=== PATIENT | male | born 1945 | race Caucasian/White ===

== ENCOUNTER 2016-09-15 15:35 | Observation (INO) | payer MEDICARE, OTHER ==
[~2016-09-15 15:35] MED LIST: Furosemide 40 MG/4 ML VIAL IVPUSH PRN
[2016-09-15] MEDS ORDERED: Albuterol/Ipratropium 3.0-0.5 MG/3 ML Neb Soln NEB PRN (15:42)
[2016-09-15] MEDS ORDERED: Acetaminophen 325 MG Tab PO PRN (15:42)
[2016-09-15 16:18] LABS: CHLORIDE,CL 98 mmol/L (98-107); SODIUM,NA 138 mmol/L (136-145)
[2016-09-15] MEDS ORDERED: Albuterol 0.083% 2.5 MG/3 ML Neb Soln INH PRN (16:39)
[2016-09-15] MEDS ORDERED: Nitroglycerin 0.4 MG Tab.SL SL PRN (16:39)
[2016-09-15] MEDS: Sodium Chloride 0.9% 1,000 ML IV SCH (16:47)
[2016-09-15] MEDS: Sodium Chloride 0.9% 10 ML Syringe FLUSH PRN (16:47)
--- NOTE | 2016-09-15 16:59 | PCM.HP ---
H&P History of Present Illness - General Date of Service: 09/16/16 Admit Problem/Dx: Admission Diagnosis/Problem Admission Diagnosis/Problem Anemia Source of Information: Patient, Family History Limitations: Reports: No Limitations - History of Present Illness Initial Comments - Free Text/Narative: Patient comes into the clinic for physical exam and lab work shows hgb of 7.8. Positive occult stool noted, brown stool on exam. Patient has had history of GI bleed, denies any blood in the stool or heartburn. Last alcoholic drink December 2015. Patient does have shortness of breath at times, denies any chest pain. Has had some low blood pressures SBP 100 to 110. Improves with: Reports: Rest Worsens with: Reports: Movement Associated Symptoms: Reports: Shortness of Breath - Related Data Allergies/Adverse Reactions: Allergies Allergy/AdvReac Type Severity Reaction Status Date / Time linezolid [From Zyvox] Allergy Hallucinati Verified 09/15/16 15:51 ons methylprednisolone Allergy Hallucinati Verified 09/15/16 15:51 [From Solu-Medrol] ons Home Medications: Home Meds Cyanocobalamin (Vitamin B12) [Vitamin B12] 1,000 mcg IM Q30D 09/16/13 [History] atorvaSTATin [Lipitor] 20 mg PO BEDTIME 09/16/13 [History] Sertraline [Zoloft] 50 mg PO DAILY #30 tablet 12/18/13 [Rx] Fluticasone/Salmeterol [Advair 250-50] 1 puff INH BID 02/02/15 [History] Allopurinol [Zyloprim] 300 mg PO DAILY 05/20/15 [History] Digoxin [Digox] 125 mcg PO DAILY@1600 05/20/15 [History] Furosemide [Lasix] 40 mg PO DAILY 05/20/15 [History] Famotidine [Pepcid] 20 mg PO BID #180 06/15/15 [Rx] Nitroglycerin [Nitrostat] 0.4 mg SL ASDIRECTED PRN 01/03/16 [History] Tiotropium [Spiriva HandiHaler] 18 mcg INH DAILY 01/03/16 [History] Metoprolol Tartrate 12.5 mg PO BEDTIME 02/07/16 [History] Aspirin [Halfprin] 81 mg PO DAILY 02/14/16 [History] Levothyroxine Sodium [Synthroid] 75 mcg PO DAILY 02/14/16 [History] Pantoprazole Sodium [Protonix] 40 mg PO DAILY 02/14/16 [History] Clopidogrel [Plavix] 75 mg PO DAILY #30 tablet 02/24/16 [Rx] Albuterol Sulfate 2.5 mg IH Q4HR PRN 09/15/16 [History] Albuterol Sulfate [Proair Hfa] 1 - 2 puff INH Q4HR PRN 09/15/16 [History] Magnesium Oxide 400 mg PO DAILY 09/15/16 [History] Prednisone [IJD: Prednisone] 10 mg PO DAILY 09/15/16 [History] Sennosides/Docusate Sodium [Senna S Tablet] 1 each PO BID PRN 09/15/16 [History] Past Medical History HEENT History: Reports: Impaired Vision Cardiovascular History: Reports: CAD, Heart Failure, High Cholesterol, Hypertension, [place], Stents Respiratory History: Reports: COPD Gastrointestinal History: Reports: GI Bleed Musculoskeletal History: Reports: Back Pain, Chronic, Fracture, Osteoarthritis Neurological History: Reports: Neuropathy, Peripheral Psychiatric History: Reports: Addiction, Anxiety Endocrine/Metabolic History: Reports: Hypothyroidism Hematologic History: Reports: Anemia, B12 Deficiency, Blood Transfusion(s) - Infectious Disease History Infectious Disease History: Reports: Measles - Past Surgical History HEENT Surgical History: Reports: Oral Surgery Cardiovascular Surgical History: Reports: Carotid Stents Musculoskeletal Surgical History: Reports: Hip Replacement, ORIF Social & Family History - Tobacco Use Smoking Status *Q: Current Some Day Smoker Years of Tobacco use: 57 Packs/Tins Daily: 0.2 Used Tobacco, but Quit: No Month Tobacco Last Used: 6 month Second Hand Smoke Exposure: No - Caffeine Use Caffeine Use: Reports: Coffee - Alcohol Use Alcohol Use History: Yes Days Per Week of Alcohol Use: 3 Number of Drinks Per Day: 3 Total Drinks Per Week: 9 Date of Last Drink: 12/17/15 - Recreational Drug Use Recreational Drug Use: No Recreational Drug Last Use: 3 coffees per day in a day, occasional tea H&P Review of Systems - Review of Systems: Review Of Systems: See Below General: Reports: Weakness HEENT: Reports: No Symptoms Pulmonary: Reports: Shortness of Breath Cardiovascular: Reports: No Symptoms Gastrointestinal: Reports: No Symptoms Genitourinary: Reports: No Symptoms Musculoskeletal: Reports: Joint Pain Psychiatric: Reports: No Symptoms Neurological: Reports: No Symptoms Hematologic/Lymphatic: Reports: Anemia, Easy Bruising Immunologic: Reports: No Symptoms Exam - Exam Exam: See Below - Vital Signs Weight: 216 lb - Exam General: Alert, Oriented, Cooperative HEENT: Conjunctiva Clear, EACs Clear, EOMI, Hearing Intact, Mucosa Moist & Lander , Nares Patent, Normal Nasal Septum, Posterior Pharynx Clear Neck: Supple, Trachea Midline Lungs: Normal Respiratory Effort, Decreased Breath Sounds Cardiovascular: Regular Rate, Regular Rhythm, Systolic Murmur Abdomen: Normal Bowel Sounds, Soft (Male) Exam: No Hernia (genital warts noted) Rectal (Males) Exam: Prostate Normal, Heme + Stool Back Exam: Normal Inspection, Full Range of Motion Extremities: Normal Inspection Peripheral Pulses: 1+: Dorsalis Pedis (L), Dorsalis Pedis (R) Skin: Warm, Dry, Intact Neuro Extensive - Mental Status: Alert, Oriented x3, Normal Mood/Affect, Normal Cognition, Memory Intact Psychiatric: Alert, Normal Affect, Normal Mood - Patient Data Lab Results last 24 hrs: Laboratory Results - last 24 hr 09/15/16 09/15/16 Range/Units 15:55 15:55 Sodium 138 (136-145) mmol/L Potassium 4.0 (3.5-5.1) mmol/L Chloride 98 (98-107) mmol/L Carbon Dioxide 32.7 H (21.0-32.0) mmol/L BUN 18 (7-18) mg/dL Creatinine 1.05 (0.51-1.17) mg/dL Est Cr Clr Drug Dosing 58.58 mL/min Estimated GFR (MDRD) > 60 mL/min Glucose 139 H (74-106) mg/dL Calcium 8.9 (8.5-10.1) mg/dL Total Bilirubin 0.6 (0.2-1.0) mg/dL AST 17 (15-37) U/L ALT 14 (12-78) U/L Alkaline Phosphatase 86 (46-116) IU/L C-Reactive Protein 0.4 (<=0.9) mg/dL Total Protein 7.1 (6.4-8.2) g/dL Albumin 3.7 (3.4-5.0) g/dL Blood Type O POSITIVE Gel Antibody Screen Negative Crossmatch See Detail Result Diagrams: 09/15/16 15:55 *Q Meaningful Use (ADM) - VTE *Q VTE Criteria *Q: - Stroke *Q Stroke Criteria *Q: - AMI *Q AMI Criteria *Q: - Problem List (1) Anemia SNOMED Code(s): 234228084 ICD Code: D64.9 - ANEMIA, UNSPECIFIED Status: Acute Current Visit: Yes Qualifiers: Anemia type: iron deficiency Iron deficiency anemia type: unspecified iron deficiency Qualified Code(s): D50.9 - Iron deficiency anemia, unspecified (2) CAD (coronary artery disease) SNOMED Code(s): 70550549 ICD Code: I25.10 - ATHSCL HEART DISEASE OF [place] CORONARY ARTERY W/O ANG PCTRS Status: Chronic Current Visit: No Qualifiers: Coronary Disease-Associated Artery/Lesion type: unspecified vessel or lesion type Associated angina: without angina (3) COPD, Moderate chronic obstructive pulmonary disease SNOMED Code(s): 030454545 ICD Code: J44.9 - CHRONIC OBSTRUCTIVE PULMONARY DISEASE, UNSPECIFIED Status : Chronic Priority: High Current Visit: No Problem List Initiated/Reviewed/Updated: Yes Orders Last 24hrs: Active Orders 24 hr Category Date Time Status Patient Status [ADT] Routine ADT 09/15/16 15:42 Ordered Antiembolic Devices [RC] PER UNIT ROUTINE Care 09/15/16 15:45 Ordered Height and Weight [RC] DAILY Care 09/15/16 15:42 Ordered Intake and Output [RC] QSHIFT Care 09/15/16 15:44 Ordered May Shower [RC] ASDIRECTED Care 09/15/16 15:42 Ordered Oxygen Therapy [RC] PRN Care 09/15/16 15:42 Ordered Peripheral IV Care [RC] . DIRECTED Care 09/15/16 15:45 Ordered Pulse Oximetry [RC] PRN Care 09/15/16 15:44 Ordered RT Aerosol Therapy [RC] ASDIRECTED Care 09/15/16 15:46 Ordered Up to Chair [RC] ASDIRECTED Care 09/15/16 15:42 Ordered VTE/DVT Education [RC] PER UNIT ROUTINE Care 09/15/16 15:42 Ordered Vital Signs [RC] Q4H Care 09/15/16 15:42 Ordered Consult to Case Management [CONS] Routine Cons 09/15/16 15:42 Ordered Full Liquid Diet [DIET] Diet 09/15/16 Dinner Ordered Abdomen 1V Flat [CR] Routine Exams 09/15/16 15:42 Ordered Chest 2V [CR] Routine Exams 09/15/16 15:42 Ordered CULTURE URINE [RM] Stat Lab 09/15/16 15:42 Uncollected OCCULT BLOOD DIAGNOSTIC [OP] DAILY Lab 09/15/16 16:53 Uncollected OCCULT BLOOD DIAGNOSTIC [OP] DAILY Lab 09/16/16 16:53 Uncollected RED BLOOD CELLS LP [BBK] Routine Lab 09/15/16 15:42 Ordered TYPE AND SCREEN [BBK] Routine Lab 09/15/16 15:55 Results UA W/MICROSCOPIC [URIN] Routine Lab 09/15/16 15:42 Uncollected Acetaminophen [Tylenol] Med 09/15/16 15:42 Ordered 650 mg PO Q4H PRN Albuterol [Proventil Neb Soln] Med 09/15/16 16:39 Ordered 2.5 mg INH Q4HR PRN Albuterol/Ipratropium [DuoNeb 3.0-0.5 MG/3 ML] Med 09/15/16 15:42 Ordered 3 ml NEB Q4H PRN Digoxin [Lanoxin] Med 09/16/16 16:00 Ordered 125 mcg PO DAILY@1600 Docusate Sodium/Sennosides [Senna Plus] Med 09/15/16 16:39 Ordered 1 each PO BID PRN Fluticasone/Salmeterol [Advair 250-50] Med 09/15/16 18:00 Ordered 1 puff INH BID Furosemide [Lasix] Med 09/15/16 20:00 Once 40 mg IVPUSH ASDIRECTED ONE Furosemide [Lasix] Med 09/16/16 08:00 Ordered 40 mg PO DAILY Levothyroxine Med 09/16/16 08:00 Ordered 75 mcg PO DAILY Metoprolol Tartrate [Lopressor] Med 09/15/16 20:00 Ordered 12.5 mg PO BEDTIME Nitroglycerin [Nitrostat] Med 09/15/16 16:39 Ordered 0.4 mg SL ASDIRECTED PRN Pantoprazole [ProTONIX IV] Med 09/15/16 17:00 Ordered 40 mg IVPUSH Q12H Sertraline [Zoloft] Med 09/16/16 08:00 Ordered 50 mg PO DAILY Sodium Chloride 0.9% @ 50 MLS/HR(1000ml) Med 09/15/16 15:45 Ordered Sodium Chloride 0.9% [Normal Saline] 1,000 ml IV ASDIRECTED Sodium Chloride 0.9% [Saline Flush] Med 09/15/16 15:42 Ordered 10 ml FLUSH ASDIRECTED PRN Tiotropium [Spiriva HandiHaler] Med 09/16/16 08:00 Ordered 18 mcg INH DAILY Antiembolic Hose [OM.PC] Per Unit Routine Oth 09/15/16 15:44 Ordered Peripheral IV Insertion Adult [OM.PC] Routine Oth 09/15/16 15:42 Ordered Saline Lock Insert [OM.PC] Routine Oth 09/15/16 15:42 Ordered Transfuse Red Blood Cells [COMM] Routine Oth 09/15/16 15:42 Ordered Resuscitation Status Routine Resus Stat 09/15/16 15:42 Ordered Medication Orders Acetaminophen (Tylenol) 650 mg PO Q4H PRN PRN Reason: Pain (Mild 1-3)/fever Albuterol (Proventil Neb Soln) 2.5 mg INH Q4HR PRN PRN Reason: Shortness of Breath Albuterol/Ipratropium (Duoneb 3.0-0.5 Mg/3 Ml) 3 ml NEB Q4H PRN PRN Reason: Dyspnea Digoxin (Lanoxin) 125 mcg PO DAILY@1600 [facility] Furosemide (Lasix) 40 mg PO DAILY [facility] Furosemide (Lasix) 40 mg IVPUSH ASDIRECTED ONE Stop: 09/15/16 20:01 Sodium Chloride (Normal Saline) 1,000 mls @ 50 mls/hr IV ASDIRECTED ROSALIE Last Admin: 09/15/16 16:47 Dose: 50 mls/hr Levothyroxine Sodium (Levothyroxine) 75 mcg PO DAILY [facility] Metoprolol Tartrate (Lopressor) 12.5 mg PO BEDTIME ROSALIE Nitroglycerin (Nitrostat) 0.4 mg SL ASDIRECTED PRN PRN Reason: Chest Pain Non-Formulary Medication (Fluticasone/Salmeterol [Advair 250-50]) 1 puff INH BID ROS[facility] Pantoprazole Sodium (Protonix Iv) 40 mg IVPUSH Q12H ROSAL[facility] Senna/Docusate Sodium (Senna Plus) tab PO BID PRN PRN Reason: Constipation Sertraline HCl (Zoloft) 50 mg PO DAILY [facility] Sodium Chloride (Saline Flush) 10 ml FLUSH ASDIRECTED PRN PRN Reason: Keep Vein Open Last Admin: 09/15/16 16:47 Dose: 10 ml Tiotropium [place] (Spiriva Handihaler) 18 mcg INH DAILY ROSALIE Assessment/Plan Comment:: 09/15/2016 Patient is admitted for blood transfusions, one unit today and one unit tomorrow. IV PRotonix ordered. Hold aspirin and plavix for now. Consulted with Dr Du. Recheck labs in the morning. Patient agreed to plan of care. NO CODE status but jt agree to transfer to [place] if needed otherwise is wanting to stay in [place],[employer]
[2016-09-15] MEDS: Pantoprazole 40 MG Vial IVPUSH SCH (17:27)
[2016-09-15] MEDS: Formoterol/Mometasone 200-5 MCG 8.8 GM Inhaler IH SCH (17:27)
[2016-09-15] MEDS: Metoprolol Tartrate 25 MG Tab PO SCH (19:27)
[2016-09-16] MEDS: Pantoprazole 40 MG Vial IVPUSH SCH ×2 (04:41→19:09)
[2016-09-16] MEDS: Sodium Chloride 0.9% 10 ML Syringe FLUSH PRN ×3 (04:41→22:26)
[2016-09-16 07:38] LABS: CHLORIDE,CL 101 mmol/L (98-107); SODIUM,NA 140 mmol/L (136-145)
[2016-09-16] MEDS: Formoterol/Mometasone 200-5 MCG 8.8 GM Inhaler IH SCH ×2 (07:54→19:17)
[2016-09-16] MEDS: Levothyroxine 75 MCG Tab PO SCH (07:55)
[2016-09-16] MEDS: Digoxin 125 MCG Tab PO SCH (07:55)
[2016-09-16] MEDS: Tiotropium Inhaler 18 MCG Inhalation Powder Cap Kit of 5 INH SCH (07:56)
[2016-09-16] MEDS: Furosemide 20 MG Tab PO SCH (07:58)
[2016-09-16] MEDS: Sertraline 50 MG Tab PO SCH (07:58)
[2016-09-16] MEDS: Metoprolol Tartrate 25 MG Tab PO SCH (19:04)
[2016-09-16] MEDS: Sodium Chloride 0.9% 1,000 ML IV SCH (19:10)
[2016-09-16] MEDS ORDERED: Saliva Substitute Oral Spray 120 ML Bottle MUCMEM PRN (20:19)
[2016-09-16] MEDS ORDERED: cefTAZidime 1 GM Vial IVPUSH ONE (21:00)
--- NOTE | 2016-09-16 21:07 | PCM.PN ---
- General Info Date of Service: 09/16/16 Admission Dx/Problem (Free Text): Admission Diagnosis/Problem Admission Diagnosis/Problem Anemia Functional Status: Reports: pain controlled - Review of Systems General: Reports: No Symptoms HEENT: Reports: no symptoms Pulmonary: Reports: no symptoms Cardiovascular: Reports: No Symptoms Gastrointestinal: Reports: No symptoms Genitourinary: Reports: no symptoms Musculoskeletal: Reports: no symptoms Skin: Reports: no symptoms Neurological: Reports: No Symptoms Psychiatric: Reports: no symptoms - Patient Data Vitals - most recent: Last Vital Signs Temp 99.3 F 09/16/16 18:50 Pulse 85 09/16/16 19:04 Resp 18 09/16/16 18:50 BP 99/64 09/16/16 19:04 Pulse Ox 94 L 09/16/16 18:50 Weight - most recent: 211 lb 1.6 oz I&O - last 24 hours: Intake & Output 09/16/16 09/16/16 09/16/16 06:59 14:59 22:59 Intake Total 350 2252 660 Output Total 800 1075 575 Balance -450 1177 85 Lab Results last 24 hrs: Laboratory Results - last 24 hr 09/15/16 09/15/16 09/15/16 Range/Units 15:55 16:00 20:00 WBC (4.0-10.2) K/uL RBC (4.33-5.41) M/uL Hgb (13.1-16.8) g/dL Hct (39.0-49.0) % MCV (84.0-98.0) fL MCH (28.2-33.3) pg MCHC (31.7-36.0) g/dL RDW (11.2-14.1) % Plt Count (150-350) K/uL Neut % (Auto) (45.0-80.0) % Lymph % (Auto) (10.0-50.0) % [place] % (Auto) (2.0-14.0) % Eos % (Auto) (0.0-5.0) % Baso % (Auto) (0.0-2.0) % Neut # (Auto) (1.40-7.00) K/uL Lymph # (Auto) (0.50-3.50) K/uL [place] # (Auto) (0.00-1.00) K/uL Eos # (Auto) (0.00-0.50) K/uL Baso # (Auto) (0.00-0.20) K/uL Sodium (136-145) mmol/L Potassium (3.5-5.1) mmol/L Chloride (98-107) mmol/L Carbon Dioxide (21.0-32.0) mmol/L BUN (7-18) mg/dL Creatinine (0.51-1.17) mg/dL Est Cr Clr Drug Dosing mL/min Estimated GFR (MDRD) mL/min Glucose (74-106) mg/dL Calcium (8.5-10.1) mg/dL Total Bilirubin (0.2-1.0) mg/dL AST (15-37) U/L ALT (12-78) U/L Alkaline Phosphatase (46-116) IU/L C-Reactive Protein (<=0.9) mg/dL Total Protein (6.4-8.2) g/dL Albumin (3.4-5.0) g/dL Vitamin B12 876 (193-986) pg/mL Folate 25.2 (8.6-58.9) ng/mL Specimen Type Urinblad Urine Color Yellow Urine Appearance Clear Urine pH 7.0 (5.0-9.0) Ur Specific [place] 1.015 (1.005-1.030) Urine Protein Negative (NEGATIVE) mg/dL Urine Glucose (UA) Negative (NEGATIVE) mg/dL Urine Ketones Negative (NEGATIVE) mg/dL Urine Occult Blood Negative (NEGATIVE) Urine Nitrite Negative (NEGATIVE) Urine Bilirubin Negative (NEGATIVE) Urine Urobilinogen 0.2 (0.2-1.0) E.U./dL Ur Leukocyte Esterase Negative (NEGATIVE) Urine RBC Not seen /HPF Urine WBC 0-5 /HPF Ur Epithelial Cells Rare /LPF Urine Bacteria Rare (NONE TO FEW) /HPF Blood Type O POSITIVE Gel Antibody Screen Negative Crossmatch See Detail 09/16/16 09/16/16 09/16/16 Range/Units 06:38 06:38 15:00 WBC 9.8 8.7 (4.0-10.2) K/uL RBC 3.54 L 3.98 L (4.33-5.41) M/uL Hgb 8.0 L 8.7 L (13.1-16.8) g/dL Hct 27.9 L 31.1 L (39.0-49.0) % MCV 78.8 L D 78.1 L (84.0-98.0) fL MCH 22.6 L 21.9 L (28.2-33.3) pg MCHC 28.7 L 28.0 L (31.7-36.0) g/dL RDW 19.8 H 19.8 H (11.2-14.1) % Plt Count 159 167 (150-350) K/uL Neut % (Auto) 73.3 77.4 (45.0-80.0) % Lymph % (Auto) 17.2 11.0 (10.0-50.0) % [place] % (Auto) 7.7 8.9 (2.0-14.0) % Eos % (Auto) 1.1 1.5 (0.0-5.0) % Baso % (Auto) 0.7 1.2 (0.0-2.0) % Neut # (Auto) 7.14 H 6.73 (1.40-7.00) K/uL Lymph # (Auto) 1.68 0.96 (0.50-3.50) K/uL [place] # (Auto) 0.75 0.77 (0.00-1.00) K/uL Eos # (Auto) 0.11 0.13 (0.00-0.50) K/uL Baso # (Auto) 0.07 0.10 (0.00-0.20) K/uL Sodium 140 (136-145) mmol/L Potassium 3.5 (3.5-5.1) mmol/L Chloride 101 (98-107) mmol/L Carbon Dioxide 36.7 H (21.0-32.0) mmol/L BUN 18 (7-18) mg/dL Creatinine 1.06 (0.51-1.17) mg/dL Est Cr Clr Drug Dosing 58.03 mL/min Estimated GFR (MDRD) > 60 mL/min Glucose 98 (74-106) mg/dL Calcium 8.5 (8.5-10.1) mg/dL Total Bilirubin 0.6 (0.2-1.0) mg/dL AST 16 (15-37) U/L ALT 15 (12-78) U/L Alkaline Phosphatase 75 (46-116) IU/L C-Reactive Protein 0.7 (<=0.9) mg/dL Total Protein 6.3 L (6.4-8.2) g/dL Albumin 3.3 L (3.4-5.0) g/dL Vitamin B12 (193-986) pg/mL Folate (8.6-58.9) ng/mL Specimen Type Urine Color Urine Appearance Urine pH (5.0-9.0) Ur Specific [place] (1.005-1.030) Urine Protein (NEGATIVE) mg/dL Urine Glucose (UA) (NEGATIVE) mg/dL Urine Ketones (NEGATIVE) mg/dL Urine Occult Blood (NEGATIVE) Urine Nitrite (NEGATIVE) Urine Bilirubin (NEGATIVE) Urine Urobilinogen (0.2-1.0) E.U./dL Ur Leukocyte Esterase (NEGATIVE) Urine RBC /HPF Urine WBC /HPF Ur Epithelial Cells /LPF Urine Bacteria (NONE TO FEW) /HPF Blood Type Gel Antibody Screen Crossmatch Javan Results last 24 hrs: Microbiology 09/16/16 16:49 Stool Occult Blood (JAVAN) - Final Stool / Feces - Stool, Formed NEGATIVE OCCULT BLOOD Med Orders - Current: Current Medications Acetaminophen (Tylenol) 650 mg PO Q4H PRN PRN Reason: Pain (Mild 1-3)/fever Albuterol (Proventil Neb Soln) 2.5 mg INH Q4HR PRN PRN Reason: Shortness of Breath Albuterol/Ipratropium (Duoneb 3.0-0.5 Mg/3 Ml) 3 ml NEB Q4H PRN PRN Reason: Dyspnea Digoxin (Lanoxin) 125 mcg PO DAILY@0800 [facility] Last Admin: 09/16/16 07:55 Dose: 125 mcg Furosemide (Lasix) 40 mg PO DAILY [facility] Last Admin: 09/16/16 07:58 Dose: 40 mg Sodium Chloride (Normal Saline) 1,000 mls @ 50 mls/hr IV ASDIRECTED [facility] Last Admin: 09/16/16 19:10 Dose: 50 mls/hr Levothyroxine Sodium (Levothyroxine) 75 mcg PO DAILY [facility] Last Admin: 09/16/16 07:55 Dose: 75 mcg Metoprolol Tartrate (Lopressor) 12.5 mg PO BEDTIME [facility] Last Admin: 09/16/16 19:04 Dose: Not Given Mometasone Furoate/Formoterol Fumar (Dulera 200-5 Mcg) 2 puff IH BID [facility] Last Admin: 09/16/16 19:17 Dose: 2 puff Nitroglycerin (Nitrostat) 0.4 mg SL ASDIRECTED PRN PRN Reason: Chest Pain Pantoprazole Sodium (Protonix Iv) 40 mg IVPUSH Q12H [facility] Last Admin: 09/16/16 19:09 Dose: 40 mg Saliva Substitute ([place]-Stir Oral [place]) 0 ml MUCMEM ASDIRECTED PRN PRN Reason: Dryness Last Admin: 09/16/16 20:42 Dose: 2 ml Senna/Docusate Sodium (Senna Plus) 1 tab PO BID PRN PRN Reason: Constipation Sertraline HCl (Zoloft) 50 mg PO DAILY [facility] Last Admin: 09/16/16 07:58 Dose: 50 mg Sodium Chloride (Saline Flush) 10 ml FLUSH ASDIRECTED PRN PRN Reason: Keep Vein Open Last Admin: 09/16/16 19:09 Dose: 10 ml Tiotropium [place] (Spiriva Handihaler) 18 mcg INH DAILY [facility] Last Admin: 09/16/16 07:56 Dose: 1 puff Discontinued Medications Furosemide (Lasix) 40 mg IVPUSH DAILY PRN PRN Reason: AFTER EACH UNIT OF PRBC Stop: 09/16/16 23:59 Last Admin: 09/15/16 20:07 Dose: 40 mg - Exam General: alert, cooperative, no acute distress HEENT: Pupils equal, Pupils reactive, EOMI, Mucous membr. moist/pink Neck: trachea midline Lungs: Normal respiratory effort, Decreased breath sounds Cardiovascular: Irregular Rhythm, Murmurs Abdomen: bowel sounds present, soft, no tenderness, no distension (Male) Exam: Deferred Back Exam: Normal Inspection Extremities: no calf tenderness Skin: warm, dry, intact Neurological: no new focal deficit Psy/Mental Status: alert, normal affect, normal mood - Problem List Review Problem List Initiated/Reviewed/Updated: Yes - My Orders Last 24 Hours: My Active Orders 09/17/16 05:11 CBC WITH AUTO DIFF [HEME] Routine RED BLOOD CELLS LP [BBK] Routine Transfuse Red Blood Cells [COMM] Routine 09/17/16 12:00 HEMOGLOBIN/HEMATOCRIT,HH [HEME] Routine - Plan Plan:: 09/15/2016 Patient is admitted for blood transfusions, one unit today and one unit tomorrow. IV PRotonix ordered. Hold aspirin and plavix for now. Consulted with Dr Du. Recheck labs in the morning. Patient agreed to plan of care. NO CODE status but jt agree to transfer to [place] if needed otherwise is wanting to stay in [place] [facility] 09/16/16 Ana Laura Bourgeois MD No complaints. H/H noted. will transfuse one more unit in AM.
[2016-09-16] MEDS ORDERED: Azithromycin 500 MG in Sodium Chloride 0.9% 250 ML IV SCH (22:00)
[2016-09-17] MEDS: Sodium Chloride 0.9% 10 ML Syringe FLUSH PRN (05:41)
[2016-09-17] MEDS: Pantoprazole 40 MG Vial IVPUSH SCH ×2 (05:41→17:10)
[2016-09-17 07:31] LABS: CHLORIDE,CL 102 mmol/L (98-107); SODIUM,NA 139 mmol/L (136-145)
[2016-09-17] MEDS: Formoterol/Mometasone 200-5 MCG 8.8 GM Inhaler IH SCH (07:32)
[2016-09-17] MEDS: Digoxin 125 MCG Tab PO SCH (07:32)
[2016-09-17] MEDS: Tiotropium Inhaler 18 MCG Inhalation Powder Cap Kit of 5 INH SCH (07:32)
[2016-09-17] MEDS: Sertraline 50 MG Tab PO SCH (07:32)
[2016-09-17] MEDS: Furosemide 20 MG Tab PO SCH (07:33)
[2016-09-17] MEDS: Levothyroxine 75 MCG Tab PO SCH (07:33)
[2016-09-17] MEDS ORDERED: cefTAZidime 1 GM Vial IVPUSH SCH (08:00)
[2016-09-17 16:35] VITALS: BP 105/59
--- NOTE | 2016-09-17 16:52 | PCM.PN ---
- General Info Date of Service: 09/17/16 Admission Dx/Problem (Free Text): Admission Diagnosis/Problem Admission Diagnosis/Problem Anemia Functional Status: Reports: pain controlled - Review of Systems General: Reports: No Symptoms HEENT: Reports: no symptoms Pulmonary: Reports: no symptoms Cardiovascular: Reports: No Symptoms Gastrointestinal: Reports: No symptoms Genitourinary: Reports: no symptoms Musculoskeletal: Reports: no symptoms Skin: Reports: no symptoms Neurological: Reports: No Symptoms Psychiatric: Reports: no symptoms - Patient Data Vitals - most recent: Last Vital Signs Temp 95.3 F L 09/17/16 16:00 Pulse 92 09/17/16 16:00 Resp 15 09/17/16 16:00 BP 105/59 L 09/17/16 16:00 Pulse Ox 96 09/17/16 15:00 Weight - most recent: 213 lb 6.414 oz I&O - last 24 hours: Intake & Output 09/17/16 09/17/16 09/17/16 06:59 14:59 22:59 Intake Total 850 84 200 Output Total 900 1000 Balance -50 -916 200 Lab Results last 24 hrs: Laboratory Results - last 24 hr 09/15/16 09/15/16 09/17/16 Range/Units 15:55 16:00 06:40 WBC (4.0-10.2) K/uL RBC (4.33-5.41) M/uL Hgb (13.1-16.8) g/dL Hct (39.0-49.0) % MCV (84.0-98.0) fL MCH (28.2-33.3) pg MCHC (31.7-36.0) g/dL RDW (11.2-14.1) % Plt Count (150-350) K/uL Neut % (Auto) (45.0-80.0) % Lymph % (Auto) (10.0-50.0) % [place] % (Auto) (2.0-14.0) % Eos % (Auto) (0.0-5.0) % Baso % (Auto) (0.0-2.0) % Neut # (Auto) (1.40-7.00) K/uL Lymph # (Auto) (0.50-3.50) K/uL [place] # (Auto) (0.00-1.00) K/uL Eos # (Auto) (0.00-0.50) K/uL Baso # (Auto) (0.00-0.20) K/uL Sodium 139 (136-145) mmol/L Potassium 3.8 (3.5-5.1) mmol/L Chloride 102 (98-107) mmol/L Carbon Dioxide 35.0 H (21.0-32.0) mmol/L BUN 16 (7-18) mg/dL Creatinine 0.92 (0.51-1.17) mg/dL Est Cr Clr Drug Dosing 66.86 mL/min Estimated GFR (MDRD) > 60 mL/min Glucose 102 (74-106) mg/dL Calcium 8.2 L (8.5-10.1) mg/dL Magnesium 1.8 (1.8-2.4) mg/dL Iron 16 L (50-160) ug/dL TIBC 479 H (261-478) ug/dL Transferrin 342 H (180-329) mg/dL Transferrin % Sat 3.3 L (20.0-50.0) % Ferritin 8 L (24-336) ng/mL Total Bilirubin 0.5 (0.2-1.0) mg/dL AST 16 (15-37) U/L ALT 14 (12-78) U/L Alkaline Phosphatase 71 (46-116) IU/L C-Reactive Protein 0.8 (<=0.9) mg/dL Total Protein 6.0 L (6.4-8.2) g/dL Albumin 3.1 L (3.4-5.0) g/dL Blood Type O POSITIVE Gel Antibody Screen Negative Crossmatch See Detail 09/17/16 09/17/16 Range/Units 06:40 12:06 WBC 9.5 (4.0-10.2) K/uL RBC 3.75 L (4.33-5.41) M/uL Hgb 8.6 L 10.4 L D (13.1-16.8) g/dL Hct 30.0 L 36.6 L (39.0-49.0) % MCV 80.0 L (84.0-98.0) fL MCH 22.9 L (28.2-33.3) pg MCHC 28.7 L (31.7-36.0) g/dL RDW 20.3 H (11.2-14.1) % Plt Count 144 L (150-350) K/uL Neut % (Auto) 75.8 (45.0-80.0) % Lymph % (Auto) 13.9 (10.0-50.0) % [place] % (Auto) 7.5 (2.0-14.0) % Eos % (Auto) 2.3 (0.0-5.0) % Baso % (Auto) 0.5 (0.0-2.0) % Neut # (Auto) 7.16 H (1.40-7.00) K/uL Lymph # (Auto) 1.31 (0.50-3.50) K/uL [place] # (Auto) 0.71 (0.00-1.00) K/uL Eos # (Auto) 0.22 (0.00-0.50) K/uL Baso # (Auto) 0.05 (0.00-0.20) K/uL Sodium (136-145) mmol/L Potassium (3.5-5.1) mmol/L Chloride (98-107) mmol/L Carbon Dioxide (21.0-32.0) mmol/L BUN (7-18) mg/dL Creatinine (0.51-1.17) mg/dL Est Cr Clr Drug Dosing mL/min Estimated GFR (MDRD) mL/min Glucose (74-106) mg/dL Calcium (8.5-10.1) mg/dL Magnesium (1.8-2.4) mg/dL Iron (50-160) ug/dL TIBC (261-478) ug/dL Transferrin (180-329) mg/dL Transferrin % Sat (20.0-50.0) % Ferritin (24-336) ng/mL Total Bilirubin (0.2-1.0) mg/dL AST (15-37) U/L ALT (12-78) U/L Alkaline Phosphatase (46-116) IU/L C-Reactive Protein (<=0.9) mg/dL Total Protein (6.4-8.2) g/dL Albumin (3.4-5.0) g/dL Blood Type Gel Antibody Screen Crossmatch Javan Results last 24 hrs: Microbiology 09/15/16 20:00 Urine Culture - Final Urine, Clean Catch MIXED [place] DAY 2 09/16/16 16:49 Stool Occult Blood (JAVAN) - Final Stool / Feces - Stool, Formed NEGATIVE OCCULT BLOOD Med Orders - Current: Current Medications Acetaminophen (Tylenol) 650 mg PO Q4H PRN PRN Reason: Pain (Mild 1-3)/fever Albuterol (Proventil Neb Soln) 2.5 mg INH Q4HR PRN PRN Reason: Shortness of Breath Albuterol/Ipratropium (Duoneb 3.0-0.5 Mg/3 Ml) 3 ml NEB Q4H PRN PRN Reason: Dyspnea Cefuroxime Axetil (Ceftin) 500 mg PO ONETIME ONE Stop: 09/17/16 17:31 Digoxin (Lanoxin) 125 mcg PO DAILY@0800 [facility] Last Admin: 09/17/16 07:32 Dose: 125 mcg Furosemide (Lasix) 40 mg PO DAILY [facility] Last Admin: 09/17/16 07:33 Dose: 40 mg Sodium Chloride (Normal Saline) 1,000 mls @ 50 mls/hr IV ASDIRECTED [facility] Last Admin: 09/16/16 19:10 Dose: 50 mls/hr Azithromycin 500 mg/ Sodium (Chloride) 250 mls @ 250 mls/hr IV Q24H [facility] Last Admin: 09/16/16 22:26 Dose: 250 mls/hr Levothyroxine Sodium (Levothyroxine) 75 mcg PO DAILY [facility] Last Admin: 09/17/16 07:33 Dose: 75 mcg Metoprolol Tartrate (Lopressor) 12.5 mg PO BEDTIME [facility] Last Admin: 09/16/16 19:04 Dose: Not Given Mometasone Furoate/Formoterol Fumar (Dulera 200-5 Mcg) 2 puff IH BID [facility] Last Admin: 09/17/16 07:32 Dose: 2 puff Nitroglycerin (Nitrostat) 0.4 mg SL ASDIRECTED PRN PRN Reason: Chest Pain Pantoprazole Sodium (Protonix Iv) 40 mg IVPUSH Q12H [facility] Last Admin: 09/17/16 05:41 Dose: 40 mg Saliva Substitute (Perry-Stir Oral [place]) 0 ml MUCMEM ASDIRECTED PRN PRN Reason: Dryness Last Admin: 05/16/17 20:42 Dose: 2 ml Senna/Docusate Sodium (Senna Plus) 1 tab PO BID PRN PRN Reason: Constipation Sertraline HCl (Zoloft) 50 mg PO DAILY [facility] Last Admin: 09/17/16 07:32 Dose: 50 mg Sodium Chloride (Saline Flush) 10 ml FLUSH ASDIRECTED PRN PRN Reason: Keep Vein Open Last Admin: 09/17/16 05:41 Dose: 10 ml Tiotropium [place] (Spiriva Handihaler) 18 mcg INH DAILY [facility] Last Admin: 09/17/16 07:32 Dose: 1 puff Discontinued Medications Ceftazidime (Fortaz) 1 gm IVPUSH Q12HR [facility] Last Admin: 09/17/16 07:33 Dose: 1 gm Ceftazidime (Fortaz) 1 gm IVPUSH ONETIME ONE Stop: 09/16/16 21:01 Last Admin: 09/16/16 22:26 Dose: 1 gm Furosemide (Lasix) 40 mg IVPUSH DAILY PRN PRN Reason: AFTER EACH UNIT OF PRBC Stop: 09/16/16 23:59 Last Admin: 09/15/16 20:07 Dose: 40 mg - Exam Quality Assessment: supplemental oxygen General: alert, cooperative, no acute distress HEENT: Pupils equal, Pupils reactive, EOMI, Mucous membr. moist/pink Neck: supple Lungs: Clear to auscultation, Normal respiratory effort Cardiovascular: Irregular Rhythm, Murmurs Abdomen: bowel sounds present, soft, no tenderness, no distension (Male) Exam: Deferred Back Exam: Normal Inspection Extremities: no edema, no calf tenderness Skin: warm, dry, intact Neurological: no new focal deficit Psy/Mental Status: alert, normal affect, normal mood - Problem List Review Problem List Initiated/Reviewed/Updated: Yes - My Orders Last 24 Hours: My Active Orders 09/16/16 21:34 CULTURE SPUTUM + SMEAR [RM] Routine 09/16/16 22:00 Azithromycin [Zithromax] 500 mg Sodium Chloride 0.9% [Normal Saline] 250 ml IV Q24H 09/16/16 22:16 Vital Signs [RC] QID 09/17/16 05:11 Transfuse Red Blood Cells [COMM] Routine 09/17/16 06:40 MYCOPLASMA IGM RAPID [MREF] Routine 09/17/16 16:35 Discontinue Saline Lock [Peripheral IV Discontinue] [OM.PC] Routine 09/17/16 16:48 Ready for Discharge [RC] PER UNIT ROUTINE 09/17/16 17:00 Azithromycin [Zithromax] 500 mg PO ONETIME ONE 09/17/16 17:30 Cefuroxime [Ceftin] 500 mg PO ONETIME ONE 09/17/16 Dinner Regular Diet [DIET] - Plan Plan:: 09/15/2016 Patient is admitted for blood transfusions, one unit today and one unit tomorrow. IV PRotonix ordered. Hold aspirin and plavix for now. Consulted with Dr Du. Recheck labs in the morning. Patient agreed to plan of care. NO CODE status but jt agree to transfer to [place] if needed otherwise is wanting to stay in [facility] 09/16/16 Ana Laura Bourgeois MD No complaints. H/H noted. will transfuse one more unit in AM. 09/17/16 Ana Laura Bourgeois MD Feels okay. H/H improved. Feels good to go home.
--- NOTE | 2016-09-17 16:53 | PCM.DCSUM1 ---
Discharge Summary - Discharge Data Discharge Date: 09/17/16 Discharge Disposition: Home, Self-Care 01 Condition: Good - Patient Summary/Data Consults: Consultations 09/15/16 15:42 Consult to Case Management [CONS] Routine - Patient Instructions Diet: Regular Diet as Tolerated Activity: As Tolerated Driving: May Drive Today Showering/Bathing: May Shower Other/Special Instructions: oxygen as ordered from before this hospitalization. Keep [facility] appointment. Schedule appointment at [facility] in [place] in 1-2 weeks. - Discharge Plan Prescriptions/Med Rec: Azithromycin [Zithromax] 500 mg PO DAILY #3 tablet Cefuroxime [Ceftin] 500 mg PO BID #20 tablet Home Medications: Home Meds Cyanocobalamin (Vitamin B12) [Vitamin B12] 1,000 mcg IM Q30D 09/16/13 [History] atorvaSTATin [Lipitor] 20 mg PO BEDTIME 09/16/13 [History] Sertraline [Zoloft] 50 mg PO DAILY #30 tablet 12/18/13 [Rx] Fluticasone/Salmeterol [Advair 250-50] 1 puff INH BID 02/02/15 [History] Allopurinol [Zyloprim] 300 mg PO DAILY 05/20/15 [History] Digoxin [Digox] 125 mcg PO DAILY@1600 05/20/15 [History] Furosemide [Lasix] 40 mg PO DAILY 05/20/15 [History] Famotidine [Pepcid] 20 mg PO BID #180 06/15/15 [Rx] Nitroglycerin [Nitrostat] 0.4 mg SL ASDIRECTED PRN 01/03/16 [History] Tiotropium [Spiriva HandiHaler] 18 mcg INH DAILY 01/03/16 [History] Metoprolol Tartrate 12.5 mg PO BEDTIME 02/07/16 [History] Aspirin [Halfprin] 81 mg PO DAILY 02/14/16 [History] Levothyroxine Sodium [Synthroid] 75 mcg PO DAILY 02/14/16 [History] Pantoprazole Sodium [Protonix] 40 mg PO DAILY 02/14/16 [History] Clopidogrel [Plavix] 75 mg PO DAILY #30 tablet 02/24/16 [Rx] Albuterol Sulfate 2.5 mg IH Q4HR PRN 09/15/16 [History] Albuterol Sulfate [Proair Hfa] 1 - 2 puff INH Q4HR PRN 09/15/16 [History] Magnesium Oxide 400 mg PO DAILY 09/15/16 [History] Prednisone [IJD: Prednisone] 10 mg PO DAILY 09/15/16 [History] Sennosides/Docusate Sodium [Senna S Tablet] 1 each PO BID PRN 09/15/16 [History] Azithromycin [Zithromax] 500 mg PO DAILY #3 tablet 09/17/16 [Rx] Cefuroxime [Ceftin] 500 mg PO BID #20 tablet 09/17/16 [Rx] Referrals: Sheets-Perlita Bourgeois MD [Primary Care Provider] - - Discharge Summary/Plan Comment DC Time >30 min.: No - Patient Data Vitals - Most Recent: Last Vital Signs Temp 95.3 F L 09/17/16 16:00 Pulse 92 09/17/16 16:00 Resp 15 09/17/16 16:00 BP 105/59 L 09/17/16 16:00 Pulse Ox 96 09/17/16 15:00 Weight - Most Recent: 213 lb 6.414 oz I&O - Last 24 hours: Intake & Output 09/17/16 09/17/16 09/17/16 06:59 14:59 22:59 Intake Total 850 84 200 Output Total 900 1000 950 Balance -50 -155 -401 Lab Results - Last 24 hrs: Laboratory Results - last 24 hr 09/15/16 09/15/16 09/17/16 Range/Units 15:55 16:00 06:40 WBC (4.0-10.2) K/uL RBC (4.33-5.41) M/uL Hgb (13.1-16.8) g/dL Hct (39.0-49.0) % MCV (84.0-98.0) fL MCH (28.2-33.3) pg MCHC (31.7-36.0) g/dL RDW (11.2-14.1) % Plt Count (150-350) K/uL Neut % (Auto) (45.0-80.0) % Lymph % (Auto) (10.0-50.0) % [place] % (Auto) (2.0-14.0) % Eos % (Auto) (0.0-5.0) % Baso % (Auto) (0.0-2.0) % Neut # (Auto) (1.40-7.00) K/uL Lymph # (Auto) (0.50-3.50) K/uL [place] # (Auto) (0.00-1.00) K/uL Eos # (Auto) (0.00-0.50) K/uL Baso # (Auto) (0.00-0.20) K/uL Sodium 139 (136-145) mmol/L Potassium 3.8 (3.5-5.1) mmol/L Chloride 102 (98-107) mmol/L Carbon Dioxide 35.0 H (21.0-32.0) mmol/L BUN 16 (7-18) mg/dL Creatinine 0.92 (0.51-1.17) mg/dL Est Cr Clr Drug Dosing 66.86 mL/min Estimated GFR (MDRD) > 60 mL/min Glucose 102 (74-106) mg/dL Calcium 8.2 L (8.5-10.1) mg/dL Magnesium 1.8 (1.8-2.4) mg/dL Iron 16 L (50-160) ug/dL TIBC 479 H (261-478) ug/dL Transferrin 342 H (180-329) mg/dL Transferrin % Sat 3.3 L (20.0-50.0) % Ferritin 8 L (24-336) ng/mL Total Bilirubin 0.5 (0.2-1.0) mg/dL AST 16 (15-37) U/L ALT 14 (12-78) U/L Alkaline Phosphatase 71 (46-116) IU/L C-Reactive Protein 0.8 (<=0.9) mg/dL Total Protein 6.0 L (6.4-8.2) g/dL Albumin 3.1 L (3.4-5.0) g/dL Blood Type O POSITIVE Gel Antibody Screen Negative Crossmatch See Detail 09/17/16 09/17/16 Range/Units 06:40 12:06 WBC 9.5 (4.0-10.2) K/uL RBC 3.75 L (4.33-5.41) M/uL Hgb 8.6 L 10.4 L D (13.1-16.8) g/dL Hct 30.0 L 36.6 L (39.0-49.0) % MCV 80.0 L (84.0-98.0) fL MCH 22.9 L (28.2-33.3) pg MCHC 28.7 L (31.7-36.0) g/dL RDW 20.3 H (11.2-14.1) % Plt Count 144 L (150-350) K/uL Neut % (Auto) 75.8 (45.0-80.0) % Lymph % (Auto) 13.9 (10.0-50.0) % [place] % (Auto) 7.5 (2.0-14.0) % Eos % (Auto) 2.3 (0.0-5.0) % Baso % (Auto) 0.5 (0.0-2.0) % Neut # (Auto) 7.16 H (1.40-7.00) K/uL Lymph # (Auto) 1.31 (0.50-3.50) K/uL [place] # (Auto) 0.71 (0.00-1.00) K/uL Eos # (Auto) 0.22 (0.00-0.50) K/uL Baso # (Auto) 0.05 (0.00-0.20) K/uL Sodium (136-145) mmol/L Potassium (3.5-5.1) mmol/L Chloride (98-107) mmol/L Carbon Dioxide (21.0-32.0) mmol/L BUN (7-18) mg/dL Creatinine (0.51-1.17) mg/dL Est Cr Clr Drug Dosing mL/min Estimated GFR (MDRD) mL/min Glucose (74-106) mg/dL Calcium (8.5-10.1) mg/dL Magnesium (1.8-2.4) mg/dL Iron (50-160) ug/dL TIBC (261-478) ug/dL Transferrin (180-329) mg/dL Transferrin % Sat (20.0-50.0) % Ferritin (24-336) ng/mL Total Bilirubin (0.2-1.0) mg/dL AST (15-37) U/L ALT (12-78) U/L Alkaline Phosphatase (46-116) IU/L C-Reactive Protein (<=0.9) mg/dL Total Protein (6.4-8.2) g/dL Albumin (3.4-5.0) g/dL Blood Type Gel Antibody Screen Crossmatch DOUGLAS Results - Last 24 hrs: Microbiology 09/15/16 20:00 Urine Culture - Final Urine, Clean Catch MIXED [place] DAY 2 09/16/16 16:49 Stool Occult Blood (DOUGLAS) - Final Stool / Feces - Stool, Formed NEGATIVE OCCULT BLOOD Med Orders - Current: Current Medications Acetaminophen (Tylenol) 650 mg PO Q4H PRN PRN Reason: Pain (Mild 1-3)/fever Albuterol (Proventil Neb Soln) 2.5 mg INH Q4HR PRN PRN Reason: Shortness of Breath Albuterol/Ipratropium (Duoneb 3.0-0.5 Mg/3 Ml) 3 ml NEB Q4H PRN PRN Reason: Dyspnea Azithromycin (Zithromax) 500 mg PO ONETIME ONE Stop: 09/17/16 17:01 Cefuroxime Axetil (Ceftin) 500 mg PO ONETIME ONE Stop: 09/17/16 17:31 Digoxin (Lanoxin) 125 mcg PO DAILY@0800 [facility] Last Admin: 09/17/16 07:32 Dose: 125 mcg Furosemide (Lasix) 40 mg PO DAILY [facility] Last Admin: 09/17/16 07:33 Dose: 40 mg Sodium Chloride (Normal Saline) 1,000 mls @ 50 mls/hr IV ASDIRECTED [facility] Last Admin: 09/16/16 19:10 Dose: 50 mls/hr Azithromycin 500 mg/ Sodium (Chloride) 250 mls @ 250 mls/hr IV Q24H [facility] Last Admin: 09/16/16 22:26 Dose: 250 mls/hr Levothyroxine Sodium (Levothyroxine) 75 mcg PO DAILY [facility] Last Admin: 09/17/16 07:33 Dose: 75 mcg Metoprolol Tartrate (Lopressor) 12.5 mg PO BEDTIME [facility] Last Admin: 09/16/16 19:04 Dose: Not Given Mometasone Furoate/Formoterol Fumar (Dulera 200-5 Mcg) 2 puff IH BID [facility] Last Admin: 09/17/16 07:32 Dose: 2 puff Nitroglycerin (Nitrostat) 0.4 mg SL ASDIRECTED PRN PRN Reason: Chest Pain Pantoprazole Sodium (Protonix Iv) 40 mg IVPUSH Q12H [facility] Last Admin: 09/17/16 05:41 Dose: 40 mg Saliva Substitute ([place]-Stir Oral [place]) 0 ml MUCMEM ASDIRECTED PRN PRN Reason: Dryness Last Admin: 09/16/16 20:42 Dose: 2 ml Senna/Docusate Sodium (Senna Plus) 1 tab PO BID PRN PRN Reason: Constipation Sertraline HCl (Zoloft) 50 mg PO DAILY [facility] Last Admin: 09/17/16 07:32 Dose: 50 mg Sodium Chloride (Saline Flush) 10 ml FLUSH ASDIRECTED PRN PRN Reason: Keep Vein Open Last Admin: 09/17/16 05:41 Dose: 10 ml Tiotropium [place] (Spiriva Handihaler) 18 mcg INH DAILY [facility] Last Admin: 09/17/16 07:32 Dose: 1 puff Discontinued Medications Ceftazidime (Fortaz) 1 gm IVPUSH Q12HR [facility] Last Admin: 09/17/16 07:33 Dose: 1 gm Ceftazidime (Fortaz) 1 gm IVPUSH ONETIME ONE Stop: 09/16/16 21:01 Last Admin: 09/16/16 22:26 Dose: 1 gm Furosemide (Lasix) 40 mg IVPUSH DAILY PRN PRN Reason: AFTER EACH UNIT OF PRBC Stop: 09/16/16 23:59 Last Admin: 09/15/16 20:07 Dose: 40 mg *Q Meaningful Use (DIS) - VTE *Q VTE Criteria *Q: - Stroke *Q Stroke Criteria *Q: - AMI *Q AMI Criteria *Q:
[2016-09-17] MEDS ORDERED: Azithromycin 250 MG Tab PO ONE (17:00)
[2016-09-17] MEDS ORDERED: Cefuroxime 250 MG Tab PO ONE (17:30)
== END 2016-09-17 18:00 | disposition home or self-care (01) ==
LOC: LL.MS 15:35 → INTOOBSV 15:35
PROVIDERS: ADMIT Nurse Practitioner Family; ATTEND Family Medicine
DX: D50.9 Iron deficiency anemia, unspecified (principal); I25.10 Atherosclerotic heart disease of native coronary artery without angina pectoris; J44.9 Chronic obstructive pulmonary disease, unspecified; Z79.82 Long term (current) use of aspirin; Z79.899 Other long term (current) drug therapy; Z88.8 Allergy status to other drugs, medicaments and biological substances
CPT/HCPCS: 36415; 36430; 71020; 74000; 80053; 81001; 82272; 82607; 82728; 82746; 83540; 83735; 84466; 85014; 85018; 85025; 86140; 86738; 86850; 86900; 86901; 86920; 86922; 87086; 96374; A9270; C9113; G0378; G0379; J0456; J0713; J1940; J7030; J7050; P9016

== ENCOUNTER 2021-04-19 10:54 | Emergency (ER) | payer OTHER, MEDICARE, BC ==
[2021-04-19] MEDS ORDERED: Sodium Chloride 0.9% 10 ML Syringe FLUSH PRN (11:11)
--- NOTE | 2021-04-19 11:18 | EDM.PDOC ---
ED HPI GENERAL MEDICAL PROBLEM - General Chief Complaint: Upper Extremity Injury/Pain Stated Complaint: Fall,Head injury Time Seen by Provider: 04/19/21 11:00 Source of Information: Reports: Patient, EMS History Limitations: Reports: No Limitations - History of Present Illness INITIAL COMMENTS - FREE TEXT/NARRATIVE: Pradeep is a 75 y/o male who is brought to the ER by [facility] after he slipped and fell in his apt. He was answering the door to let the harbor pilot in for some repairs and he was in his socks and he slipped on the rug as he was going to answer the door. He reports falling against his left arm and then down to his knee and then hitting his head on the wall. He denies LOC and was able to yell for help. The harbor pilot had a master calvillo and got in right away and called 911. He otherwise felt fine prior to the fall occurring. He is complaining mostly of pain in his left arm with any movement. EMS placed an air splint for transport. He is currently on Coumadin for A Fib/Valve. - Related Data Allergies Allergy/AdvReac Type Severity Reaction Status Date / Time linezolid [From Zyvox] Allergy Hallucinati Verified 04/19/21 11:04 ons methylprednisolone Allergy Hallucinati Verified 04/19/21 11:04 [From Solu-Medrol] ons Home Meds: Home Meds Sertraline [Zoloft] 50 mg PO DAILY #30 tablet 12/18/13 [Rx] Furosemide [Lasix] 40 mg PO DAILY 05/20/15 [History] Famotidine [Pepcid] 20 mg PO BID #180 06/15/15 [Rx] Tiotropium [Spiriva HandiHaler] 18 mcg INH DAILY 01/03/16 [History] Levothyroxine Sodium [Synthroid] 75 mcg PO DAILY 02/14/16 [History] Budesonide/Formoterol Fumarate [Budesonide-Formoterol 160-4.5] 2 inhalation PO DAILY 04/19/21 [History] Calcium Carbonate/Vitamin D3 [Calcium 250+D] 2 tab PO DAILY 04/19/21 [History] Cholecalciferol (Vitamin D3) [Vitamin D3] 25 mcg PO BID 04/19/21 [History] Ferrous Gluconate 1 tab PO BID@0800,1200 04/19/21 [History] Ketotifen [Ketotifen 0.025% Ophth Soln] 1 drop EYEBOTH DAILY 04/19/21 [History] Warfarin [Coumadin] 1.5 tab PO ASDIRECTED 04/19/21 [History] Warfarin [Coumadin] 5 mg PO ASDIRECTED 04/19/21 [History] carvediloL [Carvedilol] 0.5 tab PO BID 04/19/21 [History] Past Medical History HEENT History: Reports: Impaired Vision Cardiovascular History: Reports: CAD, Heart Failure, High Cholesterol, Hypertension, [place], Stents Respiratory History: Reports: COPD Gastrointestinal History: Reports: GI Bleed Musculoskeletal History: Reports: Back Pain, Chronic, Fracture, Osteoarthritis Neurological History: Reports: Neuropathy, Peripheral Psychiatric History: Reports: Addiction, Anxiety Endocrine/Metabolic History: Reports: Hypothyroidism Hematologic History: Reports: Anemia, B12 Deficiency, Blood Transfusion(s) - Infectious Disease History Infectious Disease History: Reports: Measles - Past Surgical History HEENT Surgical History: Reports: Oral Surgery Cardiovascular Surgical History: Reports: Carotid Stents Musculoskeletal Surgical History: Reports: Hip Replacement, ORIF Social & Family History - Caffeine Use Caffeine Use: Reports: Coffee Review of Systems - Review of Systems Review Of Systems: See Below Constitutional: Reports: No Symptoms Eyes: Reports: No Symptoms Ears: Reports: No Symptoms Nose: Reports: No Symptoms Mouth/Throat: Reports: No Symptoms Respiratory: Reports: No Symptoms Cardiovascular: Reports: No Symptoms GI/Abdominal: Reports: No Symptoms Genitourinary: Reports: No Symptoms Musculoskeletal: Reports: Arm Pain (left arm) Skin: Reports: Bruising (right eye region) Neurological: Reports: No Symptoms Psychiatric: Reports: No Symptoms ED EXAM, GENERAL - Physical Exam Exam: See Below General Appearance: Alert, WD/WN, Other (Elderly male, he is lying slightly off to the right side and keeping his left arm in a position of comfort. He does have a bulky dressing to his right eye region with ice.) Eye Exam: Right Eye: Other (Large hematoma/brusing noted around right eye region, small skin tear noted above eye brow, not currently bleeding.) Ears: Normal External Exam, Normal Canal Nose: Normal Inspection, Normal Mucosa Throat/Mouth: Normal Inspection, Normal Lips, Normal Oropharynx, Normal Voice Head: Normocephalic, Other (See above note regarding brusing to right eye area) Neck: Normal Inspection, Supple, Non-Tender Respiratory/Chest: No Respiratory Distress, Lungs Clear, Chest Non-Tender Cardiovascular: Normal Peripheral Pulses, Regular Rate, Rhythm, No Murmur GI/Abdominal: Normal Bowel Sounds, Soft, Non-Tender (Male) Exam: Deferred Rectal (Males) Exam: Deferred Extremities: Other (Left arm in air splint, very tender with any movment, tenderness palpated along humerus region, ROM not tested as it is in the splint, CMS WNL.) Neurological: Alert, Oriented, CN II-XII Intact, Normal Cognition, No Motor/Sensory Deficits Psychiatric: Normal Affect, Normal Mood Skin Exam: Warm, Dry, Intact, Normal Color Course - Vital Signs Text/Narrative:: 1100 The patient was seen by the ENGINE SETTER. Labs ordered. CT/Xrays ordered. He was given Fentanyl 25mcg IVP for pain. Suspect mechanical fall, but will rule out other causes for fall. Will exclude head injury. Suspect fracture to left upper extremity. 1130 Xray reviewed, noted left humeral shaft fx, attempted reduction and shoulder immobilizer placed. Additional pain meds given. Note patient tachycardic in the 130s, IV fluids ordered. 1215 Labs reviewed. 1235 Received call from radiologist regarding Subarachnoid bleeding in the right frontal region. GCS=15 at this time. Rating pain 7/10 yet, pain meds ordered. BP stable, remains tachycardic. 1240 Contacted [facility] and msg left to request transfer. 1243 [facility] contacted ans case presented. Dr Patel in ER accepted the patient. Vitamin K 10mg IVP ordered to reverse Coumadin. Plan ground transfe r to [place] ER. - Orders/Labs/Meds Orders: Active Orders 24 hr Category Date Time Status EKG Documentation Completion [RC] STAT Care 04/19/21 11:11 Active Head wo Cont [CT] Stat Exams 04/19/21 11:11 Taken Humerus Lt [CR] Stat Exams 04/19/21 11:12 Taken Humerus Lt [CR] Stat Exams 04/19/21 12:31 Taken Knee 1V or 2V Lt [CR] Stat Exams 04/19/21 11:31 Taken Knee 1V or 2V Rt [CR] Stat Exams 04/19/21 11:31 Taken Phytonadione [AquaMephyton] 10 mg Med 12/17/21 13:01 Ordered Sodium Chloride 0.9% [Normal Saline] 50 ml IV NOW Sodium Chloride 0.9% [Normal Saline] 1,000 ml Med 04/19/21 12:50 Ordered IV .BOLUS Sodium Chloride 0.9% [Saline Flush] Med 04/19/21 11:11 Active 10 ml FLUSH ASDIRECTED PRN Saline Lock Insert [OM.PC] Stat Oth 04/19/21 11:11 Ordered Medication Orders Sodium Chloride (Normal Saline) 1,000 mls @ 999 mls/hr IV .BOLUS ONE Stop: 04/19/21 13:50 Sodium Chloride (Sodium Chloride 0.9% 10 Ml Syringe) 10 ml FLUSH ASDIRECTED PRN PRN Reason: Keep Vein Open Labs: Laboratory Tests 04/19/21 04/19/21 04/19/21 Range/Units 11:25 11:25 11:25 WBC 12.0 H (4.0-10.2) K/uL RBC 4.18 L (4.33-5.41) M/uL Hgb 13.9 (13.1-16.8) g/dL Hct 42.6 (39.0-49.0) % MCV 101.9 H D (84.0-98.0) fL MCH 33.3 (28.2-33.3) pg MCHC 32.6 (31.7-36.0) g/dL RDW 13.9 (11.2-14.1) % Plt Count 121 L (150-350) K/uL Neut % (Auto) 78.8 (45.0-80.0) % Lymph % (Auto) 12.7 (10.0-50.0) % [place] % (Auto) 6.7 (2.0-14.0) % Eos % (Auto) 1.4 (0.0-5.0) % Baso % (Auto) 0.4 (0.0-2.0) % Neut # (Auto) 9.48 H (1.40-7.00) K/uL Lymph # (Auto) 1.53 (0.50-3.50) K/uL [place] # (Auto) 0.80 (0.00-1.00) K/uL Eos # (Auto) 0.17 (0.00-0.50) K/uL Baso # (Auto) 0.05 (0.00-0.20) K/uL PT 28.4 H (9.6-11.3) SEC INR 2.8 Sodium 142 (136-145) mmol/L Potassium 4.1 (3.5-5.1) mmol/L Chloride 104 (98-107) mmol/L Carbon Dioxide 32.1 H (21.0-32.0) mmol/L Anion Gap 10.0 (7-15) meq/L BUN 23 H (7-18) mg/dL Creatinine 1.16 (0.51-1.17) mg/dL Est Cr Clr Drug Dosing TNP Estimated GFR (MDRD) > 60 mL/min Glucose 152 H (70-99) mg/dL Calcium 8.9 (8.5-10.1) mg/dL Magnesium 2.2 (1.8-2.4) mg/dL Total Bilirubin 0.3 (0.2-1.0) mg/dL AST 23 (15-37) U/L ALT 28 (12-78) U/L Alkaline Phosphatase 75 (46-116) IU/L Troponin I High Sens 9 (<=76) ng/L Total Protein 6.6 (6.4-8.2) g/dL Albumin 3.0 L (3.4-5.0) g/dL Ethyl Alcohol 0.002 (0.000-0.080) g/dL Meds: Medications Generic Name Dose Route Start Last Admin Trade Name Freq PRN Reason Stop Dose Admin Sodium Chloride 1,000 mls @ 999 mls/hr 04/19/21 12:50 Normal Saline IV 04/19/21 13:50 .BOLUS ONE Sodium Chloride 10 ml 04/19/21 11:11 Sodium Chloride 0.9% 10 Ml Syringe FLUSH ASDIRECTED PRN Keep Vein Open Discontinued Medications Generic Name Dose Route Start Last Admin Trade Name Freq PRN Reason Stop Dose Admin Fentanyl 25 mcg 04/19/21 11:14 04/19/21 11:29 Fentanyl 50 Mcg/Ml Sdv IVPUSH 04/19/21 11:15 25 mcg ONETIME ONE Administration Fentanyl 50 mcg 04/19/21 12:13 04/19/21 13:00 Fentanyl 50 Mcg/Ml Sdv IVPUSH 04/19/21 12:14 50 mcg ONETIME ONE Administration Fentanyl 50 mcg 04/19/21 12:50 04/19/21 13:01 Fentanyl 50 Mcg/Ml Sdv IVPUSH 04/19/21 12:51 50 mcg ONETIME ONE Administration Ondansetron HCl 4 mg 04/19/21 11:55 Ondansetron 4 Mg/2 Ml Sdv IVPUSH 04/19/21 11:56 ONETIME ONE - Radiology Interpretation Free Text/Narrative:: CT Head WO=subarachnoid bleeding in the right and left temporal lobes (See final report) Departure - Departure Time of Disposition: 13:01 Disposition: DC/Tfer to Acute Hospital 02 Condition: Good Clinical Impression: Subarachnoid hemorrhage, Subarachnoid hemorrhage, Effusion, left knee, Anticoagulant long-term use Hematoma of frontal scalp Qualifiers: Encounter type: initial encounter Qualified Code(s): S00.03XA - Contusion of scalp, initial encounter Fall as cause of accidental injury at home as place of occurrence Qualifiers: Encounter type: initial encounter Qualified Code(s): W19.XXXA - Unspecified fall, initial encounter Left humeral fracture Qualifiers: Encounter type: initial encounter Humerus Location: shaft Fracture type: closed Fracture morphology: oblique Fracture alignment: displaced Qualified Code(s): S42.332A - Displaced oblique fracture of shaft of humerus, left arm, initial encounter for closed fracture Skin tear of left elbow without complication Qualifiers: Encounter type: initial encounter Qualified Code(s): S51.012A - Laceration without foreign body of left elbow, initial encounter - Discharge Information Referrals: PCP,Not In Area [Primary Care Provider] - Forms: ED Department Discharge, Interfacility Transfer EMTCIELO Additional Instructions: -Transfer to [facility] ER to Dr Patel via [facility] ground crew - Problem List & Annotations (1) Subarachnoid hemorrhage SNOMED Code(s): 075681651 Code(s): I60.9 - NONTRAUMATIC SUBARACHNOID HEMORRHAGE, UNSPECIFIED Status: Acute Current Visit: Yes Annotation/Comment:: CT positive findings, remains tachycardic. GCS=15. Patient accepted for transfer to [facility] ER to Dr Patel. (2) Anticoagulant long-term use SNOMED Code(s): 336700387 Code(s): Z79.01 - JAIL (CURRENT) USE OF ANTICOAGULANTS Status: Acute Current Visit: Yes Annotation/Comment:: On Coumadin for A Fib and aortic atenois/valve. INR=2.8 today. Vitamin k 10mg IVP given for reversal in [place] prior to transfer. (3) Fall as cause of accidental injury at home as place of occurrence SNOMED Code(s): 77841457 Code(s): W19.XXXA - UNSPECIFIED FALL, INITIAL ENCOUNTER; Y92.009 - UNSP PLACE IN UNSP NON-INSTITUT (PRIVATE) RESIDENCE PLACE Status: Acute Current Visit: Yes Annotation/Comment:: Ground level fall as noted in HPI, No LOC. Qualifiers: Encounter type: initial encounter Qualified Code(s): W19.XXXA - Unspecified fall, initial encounter; Y92.009 - Unspecified place in unspecified non- institutional (private) residence as the place of occurrence of the external cause (4) Left humeral fracture SNOMED Code(s): 97119988 Code(s): S42.302A - UNSP FRACTURE OF SHAFT OF HUMERUS, LEFT ARM, INIT Status: Acute Current Visit: Yes Annotation/Comment:: XR notes left oblique, displaced fracture of left humeral shaft. Attempted reduction and placed in immobilizer sling. CMS good to left upper extremity. Will have Ortho address further in [place]. Qualifiers: Encounter type: initial encounter Humerus Location: shaft Fracture type: closed Fracture morphology: oblique Fracture alignment: displaced Qualified Code(s): S42.332A - Displaced oblique fracture of shaft of humerus, left arm, initial encounter for closed fracture (5) Effusion, left knee SNOMED Code(s): 584308102522061 Code(s): M25.462 - EFFUSION, LEFT KNEE Status: Acute Current Visit: Yes Annotation/Comment:: Xray negative, Effusion noted. PHUONG wrap applied. (6) Hematoma of frontal scalp SNOMED Code(s): 039951228 Code(s): S00.03XA - CONTUSION OF SCALP, INITIAL ENCOUNTER Status: Acute Current Visit: Yes Annotation/Comment:: Small abrasion noted, mild bleeding, dressed with gauze. No fuurther intervention here. Qualifiers: Encounter type: initial encounter Qualified Code(s): S00.03XA - Contusion of scalp, initial encounter (7) Skin tear of left elbow without complication SNOMED Code(s): 389583618, 374002494 Code(s): S51.012A - LACERATION WITHOUT FOREIGN BODY OF LEFT ELBOW, INIT ENCNTR Status: Acute Current Visit: Yes Annotation/Comment:: Cleansed and applied occlusive dressing. Qualifiers: Encounter type: initial encounter Qualified Code(s): S51.012A - Laceration without foreign body of left elbow, initial encounter - Problem List Review Problem List Initiated/Reviewed/Updated: Yes - My Orders Last 24 Hours: My Active Orders 04/19/21 11:11 EKG Documentation Completion [RC] STAT Head wo Cont [CT] Stat Sodium Chloride 0.9% [Saline Flush] 10 ml FLUSH ASDIRECTED PRN Saline Lock Insert [OM.PC] Stat 04/19/21 11:12 Humerus Lt [CR] Stat 04/19/21 11:31 Knee 1V or 2V Lt [CR] Stat Knee 1V or 2V Rt [CR] Stat 04/19/21 12:31 Humerus Lt [CR] Stat 04/19/21 12:50 Sodium Chloride 0.9% [Normal Saline] 1,000 ml IV .BOLUS 04/19/21 13:01 Phytonadione [AquaMephyton] 10 mg Sodium Chloride 0.9% [Normal Saline] 50 ml IV NOW - Assessment/Plan Last 24 Hours: My Active Orders 04/19/21 11:11 EKG Documentation Completion [RC] STAT Head wo Cont [CT] Stat Sodium Chloride 0.9% [Saline Flush] 10 ml FLUSH ASDIRECTED PRN Saline Lock Insert [OM.PC] Stat 04/19/21 11:12 Humerus Lt [CR] Stat 04/19/21 11:31 Knee 1V or 2V Lt [CR] Stat Knee 1V or 2V Rt [CR] Stat 04/19/21 12:31 Humerus Lt [CR] Stat 04/19/21 12:50 Sodium Chloride 0.9% [Normal Saline] 1,000 ml IV .BOLUS 04/19/21 13:01 Phytonadione [AquaMephyton] 10 mg Sodium Chloride 0.9% [Normal Saline] 50 ml IV NOW Plan: -Transfer to [facility] to ER via [facility] ground crew
[2021-04-19] MEDS: fentaNYL 50 MCG/ML SDV IVPUSH ONE ×3 (11:29→13:01)
[2021-04-19 11:53] LABS: CHLORIDE,CL 104 mmol/L (98-107); SODIUM,NA 142 mmol/L (136-145)
[2021-04-19] MEDS: Ondansetron 4 MG/2 ML SDV IVPUSH ONE (12:00)
[2021-04-19] MEDS: Sodium Chloride 0.9% 1,000 ML IV ONE (12:30)
[2021-04-19] MEDS: Phytonadione 10 MG in Sodium Chloride 0.9% 50 ML IV ONE (13:30)
[2021-04-19] MEDS: HYDROmorphone 1 MG/ML Syringe IVPUSH ONE (14:22)
[2021-04-19] MEDS: HYDROmorphone 1 MG/ML Syringe ONE (14:23)
[2021-04-19 17:50] VITALS: PULSE 135
[2021-04-19 17:51] VITALS: BP 135/92
== END 2021-04-19 14:25 ==
LOC: LL.ED 10:54
DX: S06.6X0A Traumatic subarachnoid hemorrhage without loss of consciousness, initial encounter (principal); S42.332A Displaced oblique fracture of shaft of humerus, left arm, initial encounter for closed fracture; S51.012A Laceration without foreign body of left elbow, initial encounter; S00.03XA Contusion of scalp, initial encounter; M25.462 Effusion, left knee; I11.0 Hypertensive heart disease with heart failure; I50.9 Heart failure, unspecified; I25.2 Old myocardial infarction; J44.9 Chronic obstructive pulmonary disease, unspecified; E03.9 Hypothyroidism, unspecified; D68.9 Coagulation defect, unspecified; Z88.8 Allergy status to other drugs, medicaments and biological substances; Z79.01 Long term (current) use of anticoagulants; Z95.5 Presence of coronary angioplasty implant and graft; W01.198A Fall on same level from slipping, tripping and stumbling with subsequent striking against other object, initial encounter
CPT/HCPCS: 36415; 70450; 73060-LT; 73560-LT; 73560-RT; 80053; 80307; 83735; 84484; 85025; 85610; 93005; 93010; 96365; 96375; 96376; 99284; 99285-25; J1170; J2405; J3010; J3430; J7030